=== PATIENT | female | born 1985 | race American Indian/Alaskan Native ===

== ENCOUNTER 2020-04-13 03:17 | Emergency (ER) | payer SELFPAY ==
[2020-04-13] MEDS ORDERED: MORPHINE 4 MG/1 ML INJ IV STA (05:27)
[2020-04-13] MEDS ORDERED: SODIUM CHLORIDE 0.9% 1000 ML 1,000 ML IV ONE (05:27)
[2020-04-13] MEDS ORDERED: ONDANSETRON 4 MG/2 ML INJ IV STA (05:27)
[2020-04-13 05:35] LABS: Basophils # (Auto) 0.1 K/mm3 (0.0-0.1); Basophils % (Auto) 0.5 % (0.0-1.8); Eosinophils # (Auto) 0.1 K/mm3 (0.0-0.4); Hematocrit 40.5 % (30.3-42.9); Hemoglobin 13.4 gm/dl (10.1-14.3); Lymphocytes # (Auto) 1.9 K/mm3 (1.2-5.4); Lymphocytes % (Auto) 16.9 % (13.4-35.0); Mean Corpuscular HGB Conc 33 % (30-34); Mean Corpuscular Volume 81 fl (79-97); Monocytes # (Auto) 0.7 K/mm3 (0.0-0.8); Monocytes % (Auto) 5.8 % (0.0-7.3); Platelet Count 272 K/mm3 (140-440); Red Blood Count 5.02 M/mm3 (3.65-5.03); Red Cell Distribution Width 14.6 % (13.2-15.2)
[2020-04-13 05:55] LABS: Bilirubin,Urine NEG (Negative); Blood,Urine NEG (Negative); Color,Urine Yellow (Yellow); Mucus,Urine FEW /HPF; Protein,Urine <15 mg/dL mg/dL (Negative); Urobilinogen,Urine < 2.0 mg/dL (<2.0); WBC,Urine < 1.0 /HPF (0.0-6.0)
[2020-04-13 06:15] LABS: Alanine Aminotransferase 15 units/L (7-56); Albumin 4.1 g/dL (3.9-5); Blood Urea Nitrogen 13 mg/dL (7-17); Calcium 8.5 mg/dL (8.4-10.2); Hemolysis Index 74
[2020-04-13 06:19] LABS: BUN/Creatinine Ratio 22
--- NOTE | 2020-04-13 06:51 | Emergency Department Report ---
<JENNY PFEIFFER - Last Filed: 04/13/20 06:51> ED Abdominal Pain HPI - General Chief Complaint: Abdominal Pain Stated Complaint: ABDOMINAL PAIN Time Seen by Provider: 04/13/20 05:27 Source: patient Mode of arrival: Ambulatory Limitations: No Limitations - History of Present Illness MD Complaint: abdominal pain Severity scale (0 -10): 3 - Related Data Previous Rx's Medication Instructions Recorded Last Taken Type Acetaminophen/Codeine [Tylenol #3] 1 tab PO Q6H PRN #20 tab 12/16/14 Unknown Rx Ibuprofen [Motrin 800 MG tab] 800 mg PO Q8HR PRN #30 tablet 12/16/14 Unknown Rx methOCARBAMOL [Robaxin TAB] 500 mg PO BID #15 tab 01/05/16 Unknown Rx Acetaminophen/Codeine [Tylenol 1 tab PO Q4HR PRN #20 tablet 04/13/20 Unknown Rx /Codeine # 3 tab] Ibuprofen [Motrin] 800 mg PO Q8HR PRN #30 tablet 04/13/20 Unknown Rx Allergies Allergy/AdvReac Type Severity Reaction Status Date / Time No Known Allergies Allergy Verified 01/02/16 16:27 ED Past Medical Hx - Past Medical History Previous Medical History?: Yes Additional medical history: Uterine fibroids - Surgical History Past Surgical History?: No - Social History Smoking Status: Never Smoker Substance Use Type: None - Medications Home Medications: Home Medications Medication Instructions Recorded Confirmed Last Taken Type Acetaminophen/Codeine [Tylenol #3] 1 tab PO Q6H PRN #20 tab 12/16/14 Unknown Rx Ibuprofen [Motrin 800 MG tab] 800 mg PO Q8HR PRN #30 tablet 12/16/14 Unknown Rx methOCARBAMOL [Robaxin TAB] 500 mg PO BID #15 tab 01/05/16 Unknown Rx Acetaminophen/Codeine [Tylenol 1 tab PO Q4HR PRN #20 tablet 04/13/20 Unknown Rx /Codeine # 3 tab] Ibuprofen [Motrin] 800 mg PO Q8HR PRN #30 tablet 04/13/20 Unknown Rx ED Physical Exam - General Limitations: No Limitations ED Medical Decision Making - Lab Data Result diagrams: 04/13/20 04:26 ED Disposition Clinical Impression: Adnexal mass Abdominal pain Qualifiers: Abdominal location: lower abdomen, unspecified Qualified Code(s): R10.30 - Lower abdominal pain, unspecified Disposition: DC-01 TO HOME OR SELFCARE Condition: Stable Instructions: Pelvic Mass, Female, Abdominal Pain (ED) Additional Instructions: The ultrasound shows a 14 cm solid mass in the right adnexa. You are being discharged home with Tylenol 3 for severe pain take 1-2 tablet every 4-6 hours a s needed for pain in between you may also take Motrin 800 mg every 6 hours as needed for pain I have spoken to Dr. Rees PEACH GROWER she is expecting to see you in follow-up next week please bring a copy of your lab results and the ultrasound and CAT scan report. Return to the emergency room for any worsening symptoms such as uncontrolled pain at home inability to urinate or have a bowel movement Prescriptions: Ibuprofen [Motrin] 800 mg PO Q8HR PRN #30 tablet PRN Reason: Pain, Moderate (4-6) Acetaminophen/Codeine [Tylenol /Codeine # 3 tab] 1 tab PO Q4HR PRN #20 tablet PRN Reason: Pain Referrals: PRIMARY CARE, [Primary Care Provider] - 3-5 Days JOSE REES MD [Staff Physician] - 3-5 Days <ANJEL BEST - Last Filed: 04/13/20 18:02> ED Abdominal Pain HPI - History of Present Illness Initial Comments: This is a 35-year-old obese female complaining of abdominal pain which started yesterday afternoon. She describes the pain as sharp starting her umbilicus and going straight down to the suprapubic region. She denies nausea and vomiting. She is sexually active with one partner she denies any vaginal discharge she denies any dysuria urinary frequency urinary urgency. Her past medical history is consistent for fibroids but she states she has no other medical problems Location: LLQ, RLQ, suprapubic Radiation: none Migration to: no migration Quality: sharp Consistency: constant Improves With: nothing Worsens With: bowel movement Associated Symptoms: denies other symptoms. denies: vomiting, constipation, dysuria, hematemesis - Related Data LMP Date: 03/20/20 ED Review of Systems ROS: Stated complaint: ABDOMINAL PAIN Other details as noted in HPI Comment: All other systems reviewed and negative Constitutional: no symptoms reported. denies: chills, fever Eyes: denies: eye pain, eye discharge, vision change ENT: denies: ear pain, throat pain, dental pain Respiratory: denies: cough, shortness of breath, SOB with exertion Cardiovascular: denies: chest pain, palpitations, dyspnea on exertion Endocrine: denies: no symptoms reported, excessive sweating, flushing Gastrointestinal: abdominal pain. denies: nausea, vomiting, constipation Musculoskeletal: as per HPI Skin: as per HPI Neurological: as per HPI. denies: headache, weakness, numbness, paresthesias, confusion, abnormal gait Psychiatric: denies: anxiety, depression, auditory hallucinations, visual hallucinations, homicidal thoughts ED Physical Exam - General General appearance: alert, anxious, obese - Head Head exam: Present: atraumatic - Eye Eye exam: Present: normal appearance. Absent: scleral icterus - ENT ENT exam: Present: normal exam - Neck Neck exam: Present: normal inspection - Respiratory Respiratory exam: Present: normal lung sounds bilaterally - Cardiovascular Cardiovascular Exam: Present: regular rate, normal heart sounds - GI/Abdominal GI/Abdominal exam: Present: distended, tenderness (Generalized abdominal tenderness). Absent: rebound - Extremities Exam Extremities exam: Present: normal inspection - Back Exam Back exam: Present: normal inspection - Neurological Exam Neurological exam: Present: alert, oriented X3 - Psychiatric Psychiatric exam: Present: normal affect - Skin Skin exam: Present: warm, intact ED Course Vital Signs 04/13/20 04/13/20 04/13/20 04:02 09:42 10:12 Temperature 98.7 F Pulse Rate 106 H Respiratory 20 18 16 Rate Blood Pressure 135/78 Blood Pressure [Left] O2 Sat by Pulse 99 Oximetry 04/13/20 13:41 Temperature Pulse Rate 86 Respiratory 16 Rate Blood Pressure Blood Pressure 138/71 [Left] O2 Sat by Pulse 96 Oximetry - Reevaluation(s) Reevaluation #1: 04/13/20 10:25 I discussed case with Dr. Aguilar at this time a stat pelvic ultrasound is ordered and IV Toradol ordered for patient's pain Reevaluation #2: 04/13/20 12:38 Ultrasound completed and shows a 14 cm heterogeneous solid mass in the right adnexa. Patient reevaluated states she is her pain is less able to do an abdominal exam with mild tenderness which is an improvement. I discussed patient's case with Dr. Rees PEACH GROWER on-call she suggest patient receive a dose of IV steroids discharge home with oral pain medicines and anti- inflammatory and patient is to follow-up with her in [facility] next week ED Medical Decision Making - Lab Data Result diagrams: 04/13/20 04:26 04/13/20 04:26 - Radiology Data Radiology results: report reviewed - Medical Decision Making 35-year-old female with a past medical history of fibroids for to the emergency room with complaints of abdominal pain CAT scan shows pelvic. Pelvic ultrasound shows a right adnexal mass 14 cm in size. I discussed with PEACH GROWER Dr. Rees she she agrees with outpatient follow-up she suggests 1 dose of IV steroids prior to leaving oral pain management along with follow-up next week at [facility] PEACH GROWER. Patient's pain is controlled and she agrees with follow-up plan Critical care attestation.: If time is entered above; I have spent that time in minutes in the direct care of this critically ill patient, excluding procedure time. ED Disposition Is pt being admited?: No Does the pt Need Aspirin: No Time of Disposition: 12:54
--- NOTE | 2020-04-13 08:24 | Cat Scan Report ---
CT OF THE ABDOMEN AND PELVIS WITH INTRAVENOUS CONTRAST INDICATION / CLINICAL INFORMATION: Lower abdominal pain. TECHNIQUE: The patient received 100 cc Omnipaque [address] scans at this location are performed using CT dose reduction for ALARA by means of automated exposure control. COMPARISON: None available. FINDINGS: ABDOMEN: There is a large slightly heterogeneous solid appearing mass in the lower abdomen and upper pelvis measuring approximately 14.5 cm and 42 Hounsfield units. The liver, spleen, gallbladder, bile ducts, pancreas, adrenal glands and kidneys are normal. The bowel is displaced by the mass but is oth erwise unremarkable. Small para-aortic lymph nodes are not pathologically enlarged. The lung bases ar e clear. PELVIS: The uterus is mildly enlarged and contains multiple fibroids. The large mass in the lower abd omen and pelvis abuts the superior margin of the uterus but is not definitely arising from the uterus . The urinary bladder is displaced anteriorly by the enlarged fibroid uterus. There is a 2.9 cm corpu s luteal cyst in the left ovary with mild free fluid in the cul-de-sac. The mass abuts the medial mar gin of the right ovary and there may be edema between the right ovary and mass. There is no evidence of appendicitis or diverticulitis. There is a small fat-containing epigastric mi dline ventral hernia just above the umbilicus with minimal nonspecific soft tissue stranding in the h ernia sac fat. No osseous abnormality is seen. IMPRESSION: 14.5 cm mass lower abdomen/upper pelvis abuts the superior margin of the uterus in the me dial margin of the right ovary. Differential diagnosis includes a right ovarian mass with or without ovarian torsion versus a subserosal/ligamentous uterine fibroid which also could be torsed or degener ating. Signer Name: Brandon Blankenship MD Signed: 04/13/2020 8:20 AM Workstation Name: [id number]
[2020-04-13] MEDS ORDERED: MORPHINE 4 MG/1 ML INJ IM ONE (09:34)
[2020-04-13] MEDS ORDERED: KETOROLAC 30 MG/1 ML INJ IV ONE (10:25)
--- NOTE | 2020-04-13 12:02 | Ultrasound Report ---
TRANSABDOMINAL PELVIC ULTRASOUND INDICATION / CLINICAL INFORMATION: Lower abdominal pain. COMPARISON: CT of the abdomen and pelvis earlier today. FINDINGS: The uterus measures approximately 9.0 x 7.3 x 7.1 cm and is lobulated suggestive of fibroids. The end ometrial stripe measures 1.5 mm AP. There is a large heterogeneous solid mass in the right adnexa measuring approximately 14 cm. No inter nal blood flow is seen on Doppler exam. Mild peripheral blood flow is noted along the margin of the l esion. There is a questionable right ovary along the margin of the lesion which demonstrates normal b lood flow on Doppler exam. The left ovary is not seen. IMPRESSION: 14 cm heterogeneous solid mass in the right adnexa. I am uncertain whether the mass is ov mendy or uterine in origin. Ovarian torsion is also difficult to exclude sonographically. Signer Name: Brandon Blankenship MD Signed: 04/13/2020 11:58 AM Workstation Name: [id number]
[2020-04-13] MEDS ORDERED: dexAMETHasone 4 MG/ML VIAL IV ONE (12:34)
[2020-04-13 13:42] VITALS: BP 138/71
== END 2020-04-13 14:13 | disposition home or self-care (01) ==
LOC: ED 03:17
DX: R19.09 Other intra-abdominal and pelvic swelling, mass and lump (principal); Z79.899 Other long term (current) drug therapy
CPT/HCPCS: 36415; 74177; 76856; 80053; 81001; 83690; 84703; 85025; 96361; 96372; 96374; 96375; 99284; J1100; J1885; J2270; J2405; J7030; Q9967